=== PATIENT | female | born 1990 | race African-American/Black ===

== ENCOUNTER 2018-10-18 21:00 | Emergency (ER) | payer SELFPAY ==
[~2018-10-18] VITALS: Ht 157.5 cm; Wt 87.5 kg
--- OUTSIDE RECORDS SUMMARY | 2018-10-18 21:02 | XMS REPORT ---
Author [facility] Address Unknown Phone Unavailable Care Team Providers Care Grid Trimmer Name Role Phone Unavailable Unavailable Payers Payer Name Policy Type Policy Number Effective Date Expiration Date Problems This patient has no known problems. Allergies, Adverse Reactions, Alerts Allergy Name Allergy Type Status Severity Reaction(s) Onset Date Inactive Date Treating Clinician Comments No Known Allergies DA Active U 2016-09-16 00:00:00 Medications This patient has no known medications. Results Test Description Test Time Test Comments Text Results Atomic Results Result Comments URINALYSIS COMPLETE 2018-09-01 09:19:00 UA COLOR (test code=COLU) PINKISH YELLOW UA APPEARANCE (test code=APPU) HAZY CLEAR UA GLUCOSE DIPSTICK (test code=DGLUU) norm mg/dL NEGATIVE UA BILIRUBIN DIPSTICK (test code=BILU) NEGATIVE mg/dL NEGATIVE UA KETONE DIPSTICK (test code=KETU) neg mg/dL NEGATIVE UA SPECIFIC GRAVITY (test code=SGU) 1.015 1.001-1.035 UA BLOOD DIPSTICK (test code=BLOSSOM) 250 (4+) Héctor/uL NEGATIVE UA PH DIPSTICK (test code=CHUCKY) 6.5 5.0-8.0 UA PROTEIN DIPSTICK (test code=PROU) 30 (1+) mg/dL Neg-15 UA UROBILINIOGEN DIPSTICK (test code=URO) norm mg/dL 0.0-0.2 UA NITRITE DIPSTICK (test code=KUMAR) NEGATIVE NEGATIVE UA LEUKOCYTE ESTERASE DIPSTICK (test code=LEUU) 500 Laine/uL (3+) uL NEGATIVE UA WBC (test code=WBCU) 5-10 per HPF 0-5 UA RBC (test code=RBCU) 0-3 per HPF 0-5 UA EPITHELIAL CELLS (test code=EPIU) MANY per HPF Few UA BACTERIA (test code=BACU) FEW per HPF NONE Urine Source? Clean CatchUR HCG [id number] 09:19:00* Test Item Value Reference Range Comments UR HCG QUAL (test code=HCGQLU) NEGATIVE This HCGQL test is NOT applicable for MALE patients.Check with nurse about probable order error.If Tumor Marker Test needed, nurse should order test "HCGTU"(Test #550.51331) Urine Source? Clean CatchURINALYSIS [id number] 09:11:00* Test Item Value Reference Range Comments UA COLOR (test code=COLU) PINKISH YELLOW UA APPEARANCE (test code=APPU) HAZY CLEAR UA GLUCOSE DIPSTICK (test code=DGLUU) norm mg/dL NEGATIVE UA BILIRUBIN DIPSTICK (test code=BILU) NEGATIVE mg/dL NEGATIVE UA KETONE DIPSTICK (test code=KETU) neg mg/dL NEGATIVE UA SPECIFIC GRAVITY (test code=SGU) 1.015 1.001-1.035 UA BLOOD DIPSTICK (test code=BLOSSOM) 250 (4+) Héctor/uL NEGATIVE UA PH DIPSTICK (test code=CHUCKY) 6.5 5.0-8.0 UA PROTEIN DIPSTICK (test code=PROU) 30 (1+) mg/dL Neg-15 UA UROBILINIOGEN DIPSTICK (test code=URO) norm mg/dL 0.0-0.2 UA NITRITE DIPSTICK (test code=KUMAR) NEGATIVE NEGATIVE UA LEUKOCYTE ESTERASE DIPSTICK (test code=LEUU) 500 Laine/uL (3+) uL NEGATIVE UA WBC (test code=WBCU) per HPF 0-5 UA RBC (test code=RBCU) per HPF 0-5 UA EPITHELIAL CELLS (test code=EPIU) per HPF Few UA BACTERIA (test code=BACU) per HPF NONE Urine Source? Clean CatchUR HCG [id number] 09:11:00* Test Item Value Reference Range Comments UR HCG QUAL (test code=HCGQLU) Urine Source? Clean CatchCHLAMYDIA GC DNA BY [id number] 15:11:00* Test Item Value Reference Range Comments C. TRACHOMATIS DNA BY PCR (test code=CHLAMTDNA) Negative Negative N. GONORRHOEAE DNA BY PCR (test code=NGONORDNA) Negative Negative [facility], [place] [id number] Vanna VILLARREAL Ph:[phone] performed at: [facility] [address] [place] [address] UR HCG [id number] 01:42:00* Test Item Value Reference Range Comments UR HCG QUAL (test code=HCGQLU) NEGATIVE This HCGQL test is NOT applicable for MALE patients.Check with nurse about probable order error.If Tumor Marker Test needed, nurse should order test "HCGTU"(Test #550.15103) URINALYSIS [id number] 01:41:00* Test Item Value Reference Range Comments UA COLOR (test code=COLU) STRAW YELLOW UA APPEARANCE (test code=APPU) CLOUDY CLEAR UA GLUCOSE DIPSTICK (test code=DGLUU) norm mg/dL NEGATIVE UA BILIRUBIN DIPSTICK (test code=BILU) NEGATIVE mg/dL NEGATIVE UA KETONE DIPSTICK (test code=KETU) neg mg/dL NEGATIVE UA SPECIFIC GRAVITY (test code=SGU) 1.010 1.001-1.035 UA BLOOD DIPSTICK (test code=BLOSSOM) 10 (Trace) Héctor/uL NEGATIVE UA PH DIPSTICK (test code=CHUCKY) 5.0 5.0-8.0 UA PROTEIN DIPSTICK (test code=PROU) 15 (TRACE) mg/dL Neg-15 UA UROBILINIOGEN DIPSTICK (test code=URO) norm mg/dL 0.0-0.2 UA NITRITE DIPSTICK (test code=KUMAR) NEGATIVE NEGATIVE UA LEUKOCYTE ESTERASE DIPSTICK (test code=LEUU) 500 Laine/uL (3+) uL NEGATIVE UA WBC (test code=WBCU) TNTC per HPF 0-5 UA RBC (test code=RBCU) 0-2 per HPF 0-5 UA EPITHELIAL CELLS (test code=EPIU) Few (2-5/hpf) per HPF Few UA BACTERIA (test code=BACU) MANY per HPF NONE Urine Source? Clean CatchURINALYSIS [id number] 01:40:00* Test Item Value Reference Range Comments UA COLOR (test code=COLU) STRAW YELLOW UA APPEARANCE (test code=APPU) CLOUDY CLEAR UA GLUCOSE DIPSTICK (test code=DGLUU) norm mg/dL NEGATIVE UA BILIRUBIN DIPSTICK (test code=BILU) NEGATIVE mg/dL NEGATIVE UA KETONE DIPSTICK (test code=KETU) neg mg/dL NEGATIVE UA SPECIFIC GRAVITY (test code=SGU) 1.010 1.001-1.035 UA BLOOD DIPSTICK (test code=BLOSSOM) 10 (Trace) Héctor/uL NEGATIVE UA PH DIPSTICK (test code=CHUCKY) 5.0 5.0-8.0 UA PROTEIN DIPSTICK (test code=PROU) 15 (TRACE) mg/dL Neg-15 UA UROBILINIOGEN DIPSTICK (test code=URO) norm mg/dL 0.0-0.2 UA NITRITE DIPSTICK (test code=KUMAR) NEGATIVE NEGATIVE UA LEUKOCYTE ESTERASE DIPSTICK (test code=LEUU) 500 Laine/uL (3+) uL NEGATIVE UA WBC (test code=WBCU) per HPF 0-5 UA RBC (test code=RBCU) per HPF 0-5 UA EPITHELIAL CELLS (test code=EPIU) per HPF Few UA BACTERIA (test code=BACU) per HPF NONE Urine Source? 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 No evidence of effusion. The heart size is within normal limits. Pulmonary vasculatures are unremarkable. The osseous structures are grossly intact. IMPRESSION: No active disease. at 2115 Reported and signed by: Lonnie Robbins M.D. CC: Florentino Byrd Technologist: ALPA STUART(R),RDMS,CT Trnscrpt Data: 07/13/2018 (2115) [email or web address].VTL Orig Print D/T: S: 07/13/2018 (2119) PAGE 1 Signed Report - XR HAND 3 + V [id number] 21:23:00 Name: MAYDA JOHN [facility] : 1990 Age/S:28 /F [address] [facility] Unit#:[id number] Loc: [place] [address] Phys: Georgia Coffey MD Dis Date: PHONE #: [phone] Status: REG ER FAX #: [phone] Exam Date: 06/09/2018 Reason: PAIN OF THE 5TH DIGIT EXAMS: CPT CODE: [id number] XR HAND 3 + V RT [id number] REASON FOR EXAM: PAIN OF THE 5TH DIGIT EXAM ORDER DATE: 06/09/2018 8:23 PM Ordering Saba: Georgia Coffey MD PROCEDURE: - XR HAND 3 + V RT FINDINGS: 3 views of the right hand were obtained. The osseous structures are unremarkable in size and shape. The joint spaces are maintained. No evidence of fracture. The phalanges are intact. The carpal and metacarpal bones are unremarkable. There is normal alignment of the radiocarpal joint space IMPRESSION: Unremarkable right hand at 3 Reported and signed by: Lonnie Robbins M.D. CC: Georgia Coffey MD Technologist: NITZA GRACE RT(R),CT Trnscrpt Data: 06/09/2018 (2122) AlexusVTL Orig Print D/T: S: 06/09/2018 (2125) PAGE 1 Signed Report - XR HAND 3 + V [id number] 21:23:00 Name: MAYDA JOHN [facility] : 1990 Age/S:28 /F [address] [facility] Unit#:[id number] Loc: [place] [address] Phys: Georgia Coffey MD Dis Date: PHONE #: [phone] Status: DEP ER FAX #: [phone] Exam Date: 06/09/2018 Reason: PAIN OF THE 5TH DIGIT EXAMS: CPT CODE: [id number] XR HAND 3 + V RT [id number] REASON FOR EXAM: PAIN OF THE 5TH DIGIT EXAM ORDER DATE: 06/09/2018 8:23 PM Ordering Saba: Georgia Coffey MD PROCEDURE: - XR HAND 3 + V RT FINDINGS: 3 views of the right hand were obtained. The osseous structures are unremarkable in size and shape. The joint spaces are maintained. No evidence of fracture. The phalanges are intact. The carpal and metacarpal bones are unremarkable. There is normal alignment of the radiocarpal joint space IMPRESSION: Unremarkable right hand at 2122 Reported and signed by: Lonnie Robbins M.D. CC: Georgia Coffey MD Technologist: NITZA GRACE RT(R),CT Trnscrpt Data: 06/09/2018 (2122) Claire Orig Print D/T: S: 06/09/2018 (2125) PAGE 1 Signed Report - XR HAND 3 + V [id number] 21:23:00 Name: MAYDA JOHN [facility] : 1990 Age/S:28 /F [address] [facility] Unit#:[id number] Loc: [place], [place] [address] Phys: Georgia Coffey MD Dis Date: PHONE #: [phone] Status: DEP ER FAX #: [phone] Exam Date: 06/09/2018 Reason: PAIN OF THE 5TH DIGIT EXAMS: CPT CODE: [id number] XR HAND 3 + V RT [id number] REASON FOR EXAM: PAIN OF THE 5TH DIGIT EXAM ORDER DATE: 06/09/2018 8:23 PM Ordering M.Justine: Georgia Coffey MD PROCEDURE: - XR HAND 3 + V RT FINDINGS: 3 views of the right hand were obtained. The osseous structures are unremarkable in size and shape. The joint spaces are maintained. No evidence of fracture. The phalanges are intact. The carpal and metacarpal bones are unremarkable. There is normal alignment of the radiocarpal joint space IMPRESSION: Unremarkable right hand at 2122 Reported and signed by: Lonnie Robbins M.D. CC: Georgia Coffey MD Technologist: NITZA GRACE RT(R),CT Trnscrpt Data: 06/09/2018 (2122) Jose.VTL Orig Print D/T: S: 06/09/2018 (2125) PAGE 1 Signed Report BASIC METABOLIC [id number] 23:51:00* Test Item Value Reference Range Comments SODIUM (test code=NA) 142 mmol/L 135-148 POTASSIUM (test code=K) 4.2 mmol/L 3.5-5.1 CHLORIDE (test code=CL) 106 mmol/L 101-109 CARBON DIOXIDE (test code=CO2) 30.7 mmol/L 21-32 ANION GAP (test code=GAP) 10 mmol/L 10-20 GLUCOSE (test code=GLU) 99 mg/dL 74-106 BLOOD UREA NITROGEN (test code=BUN) 18 mg/dL 3-21 GLOMERULAR FILTRATION RATE (test code=GFR) > 60 mL/min >=60 Estimated GFR by using Modified MDRD formula.Chronic kidney disease is defined as either kidney damageor GFR <60 mL/min/1.73 m2 for >3 months. CREATININE (test code=CREAT) 0.75 mg/dL 0.55-1.3 BUN/CREATININE RATIO (test code=BUN/CREA) 24.0 10-20 CALCIUM (test code=CA) 8.4 mg/dL 8.4-10.2 HEPATIC FUNCTION [id number] 23:51:00* Test Item Value Reference Range Comments TOTAL PROTEIN (test code=PROT) 6.8 g/dL 6.5-8.4 ALBUMIN (test code=ALB) 3.3 g/dL 3.4-4.8 GLOBULIN (test code=GLOB) 3.5 G/DL 1-10 ALBUMIN/GLOBULIN RATIO (test code=A/G) 0.9 RATIO 0.75-1.50 BILIRUBIN TOTAL (test code=BILT) 0.50 mg/dL 0.0-1.0 BILIRUBIN DIRECT (test code=BILD) 0.10 mg/dL 0.0-0.30 SGOT/AST (test code=AST) 21 U/L 6-32 SGPT/ALT (test code=ALT) 40 U/L 12-78 Note: Change in REFERENCE RANGE due to new reagent method. ALKALINE PHOSPHATASE TOTAL (test code=ALKP) 62 U/L 38-126 [id number] 23:51:00* Test Item Value Reference Range Comments LIPASE (test code=LIP) 131 U/L 128-270 HCG SERUM [id number] 23:51:00* Test Item Value Reference Range Comments HCG SERUM QUAL (test code=HCGQL) NEGATIVE NEGATIVE This HCGQL test is NOT applicable for MALE patients.Check with nurse about probable order error.If Tumor Marker Test needed, nurse should order test "HCGTU"(Test #550.69743) BASIC METABOLIC [id number] 23:50:00* Test Item Value Reference Range Comments SODIUM (test code=NA) 142 mmol/L 135-148 POTASSIUM (test code=K) 4.2 mmol/L 3.5-5.1 CHLORIDE (test code=CL) 106 mmol/L 101-109 CARBON DIOXIDE (test code=CO2) 30.7 mmol/L 21-32 ANION GAP (test code=GAP) 10 mmol/L 10-20 GLUCOSE (test code=GLU) 99 mg/dL 74-106 BLOOD UREA NITROGEN (test code=BUN) 18 mg/dL 3-21 GLOMERULAR FILTRATION RATE (test code=GFR) > 60 mL/min >=60 Estimated GFR by using Modified MDRD formula.Chronic kidney disease is defined as either kidney damageor GFR <60 mL/min/1.73 m2 for >3 months. CREATININE (test code=CREAT) 0.75 mg/dL 0.55-1.3 BUN/CREATININE RATIO (test code=BUN/CREA) 24.0 10-20 CALCIUM (test code=CA) 8.4 mg/dL 8.4-10.2 HEPATIC FUNCTION [id number] 23:50:00* Test Item Value Reference Range Comments TOTAL PROTEIN (test code=PROT) 6.8 g/dL 6.5-8.4 ALBUMIN (test code=ALB) 3.3 g/dL 3.4-4.8 GLOBULIN (test code=GLOB) 3.5 G/DL 1-10 ALBUMIN/GLOBULIN RATIO (test code=A/G) 0.9 RATIO 0.75-1.50 BILIRUBIN TOTAL (test code=BILT) 0.50 mg/dL 0.0-1.0 BILIRUBIN DIRECT (test code=BILD) 0.10 mg/dL 0.0-0.30 SGOT/AST (test code=AST) 21 U/L 6-32 SGPT/ALT (test code=ALT) 40 U/L 12-78 Note: Change in REFERENCE RANGE due to new reagent method. ALKALINE PHOSPHATASE TOTAL (test code=ALKP) 62 U/L 38-126 [id number] 23:50:00* Test Item Value Reference Range Comments LIPASE (test code=LIP) 131 U/L 128-270 HCG SERUM [id number] 23:50:00* Test Item Value Reference Range Comments HCG SERUM QUAL (test code=HCGQL) NEGATIVE CBC W/O [id number] 23:36:00* Test Item Value Reference Range Comments WHITE BLOOD CELL (test code=WBC) 6.9 K/mm3 4.5-12.5 RED BLOOD CELL (test code=RBC) 3.84 mill/mm3 3.7-5.2 HEMOGLOBIN (test code=HGB) 11.7 gram/dL 11.5-15.5 HEMATOCRIT (test code=HCT) 34.7 % 36.0-46.0 MEAN CELL VOLUME (test code=MCV) 90.4 fL 80-98 MEAN CELL HGB (test code=MCH) 30.5 picogram 27.0-33.0 MEAN CELL HGB CONCETRATION (test code=MCHC) 33.7 gram/dL 33.0-36.0 RED CELL DISTRIBUTION WIDTH (test code=RDW) 13.2 % 11.6-16.2 RED CELL DISTRIBUTION WIDTH SD (test code=RDW-SD) 43.0 fL 39.1-52.0 PLATELET COUNT (test code=PLT) 177 K/mm3 150-450 MEAN PLATELET VOLUME (test code=MPV) 9.7 fL 6.7-11.0 URINALYSIS [id number] 23:19:00* Test Item Value Reference Range Comments UA COLOR (test code=COLU) YELLOW YELLOW UA APPEARANCE (test code=APPU) CLEAR CLEAR UA GLUCOSE DIPSTICK (test code=DGLUU) NORMAL mg/dL NEGATIVE UA BILIRUBIN DIPSTICK (test code=BILU) NEGATIVE mg/dL NEGATIVE UA KETONE DIPSTICK (test code=KETU) neg mg/dL NEGATIVE UA SPECIFIC GRAVITY (test code=SGU) 1.020 1.001-1.035 UA BLOOD DIPSTICK (test code=BLOSSOM) neg Héctor/uL NEGATIVE UA PH DIPSTICK (test code=CHUCKY) 6.5 5.0-8.0 UA PROTEIN DIPSTICK (test code=PROU) 15 (TRACE) mg/dL Neg-15 UA UROBILINIOGEN DIPSTICK (test code=URO) 1 mg/dL 0.0-0.2 UA NITRITE DIPSTICK (test code=KUMAR) NEGATIVE NEGATIVE UA LEUKOCYTE ESTERASE DIPSTICK (test code=LEUU) NEGATIVE uL NEGATIVE UA WBC (test code=WBCU) 0-5 per HPF 0-5 IN SOME URINARY TRACT INFECTIONS THERE MAY NOT BE ENOUGHWBCs IN THE URINE TO TRIGGER AN AUTOMATIC (REFLEX) URINECULTURE. A SEPERATE ORDER FOR URINE CULTURE IS RECOMMENDEDIF THERE IS STRONG SUPPORT FOR A URINARY TRACT INFECTIONCLINICALLY. UA RBC (test code=RBCU) 0-2 per HPF 0-5 UA EPITHELIAL CELLS (test code=EPIU) Few (2-5/hpf) per HPF Few UA BACTERIA (test code=BACU) FEW per HPF NONE Urine Source? Clean CatchURINALYSIS [id number] 23:16:00* Test Item Value Reference Range Comments UA COLOR (test code=COLU) YELLOW YELLOW UA APPEARANCE (test code=APPU) CLEAR CLEAR UA GLUCOSE DIPSTICK (test code=DGLUU) NORMAL mg/dL NEGATIVE UA BILIRUBIN DIPSTICK (test code=BILU) NEGATIVE mg/dL NEGATIVE UA KETONE DIPSTICK (test code=KETU) neg mg/dL NEGATIVE UA SPECIFIC GRAVITY (test code=SGU) 1.020 1.001-1.035 UA BLOOD DIPSTICK (test code=BLOSSOM) neg Héctor/uL NEGATIVE UA PH DIPSTICK (test code=CHUCKY) 6.5 5.0-8.0 UA PROTEIN DIPSTICK (test code=PROU) 15 (TRACE) mg/dL Neg-15 UA UROBILINIOGEN DIPSTICK (test code=URO) 1 mg/dL 0.0-0.2 UA NITRITE DIPSTICK (test code=KUMAR) NEGATIVE NEGATIVE UA LEUKOCYTE ESTERASE DIPSTICK (test code=LEUU) NEGATIVE uL NEGATIVE UA WBC (test code=WBCU) per HPF 0-5 Urine Source? Clean Catch
[2018-10-18 22:08] LABS: BILIRUBIN,URINE NEGATIVE (NEGATIVE); CLARITY,URINE SL CLOUDY (CLEAR); COLOR,URINE YELLOW (YELLOW); KETONES,URINE NEGATIVE (NEGATIVE); LEUKOCYTE ESTERASE ,URINE NEGATIVE (NEGATIVE); NITRITE,URINE NEGATIVE (NEGATIVE); PROTEIN,URINE DIPSTICK NEGATIVE (NEGATIVE); URINE UROBILINOGEN 0.2 mg/dL (0.2 - 1)
[2018-10-18 22:09] LABS: PREGNANCY TEST, URINE NEGATIVE (NEGATIVE)
[2018-10-18 22:20] LABS: BACTERIA,URINE MODERATE /HPF; EPITHELIAL CELLS,URINE MODERATE /LPF; TRANSITIONAL EPI CELLS,URINE FEW
[2018-10-19] MEDS ORDERED: DOXYCYCLINE HY100 M3 PO (01:43)
[2018-10-19] MEDS ORDERED: FLUCONAZOLE100 MG PO (01:52)
== END 2018-10-19 02:01 | disposition home or self-care (01) ==
LOC: ER 21:00
DX: A56.02 Chlamydial vulvovaginitis (principal); A54.02 Gonococcal vulvovaginitis, unspecified; B37.3 Candidiasis of vulva and vagina
CPT/HCPCS: 81001; 81025; 99283

== ENCOUNTER 2020-05-04 14:21 | Emergency (ER) | payer SELFPAY ==
[~2020-05-04] VITALS: Ht 157.5 cm; Wt 87.5 kg
[~2020-05-04 14:21] MED LIST: DOXYCYCLINE HY100 M3 PO; FLUCONAZOLE100 MG PO
[2020-05-04] MEDS ORDERED: KETOROLAC TROMETHAMINE 30 MG/ML VIAL IV STA (14:48)
[2020-05-04 14:56] LABS: CLARITY,URINE SL CLOUDY (CLEAR); COLOR,URINE YELLOW (YELLOW); KETONES,URINE NEGATIVE (NEGATIVE); LEUKOCYTE ESTERASE ,URINE NEGATIVE (NEGATIVE); NITRITE,URINE NEGATIVE (NEGATIVE); PREGNANCY TEST, URINE NEGATIVE (NEGATIVE); PROTEIN,URINE DIPSTICK NEGATIVE (NEGATIVE); URINE UROBILINOGEN 0.2 mg/dL (0.2 - 1)
[2020-05-04 15:05] LABS: BACTERIA,URINE MODERATE /HPF; EPITHELIAL CELLS,URINE MANY /LPF; TRANSITIONAL EPI CELLS,URINE FEW
[2020-05-04] MEDS ORDERED: IOPAMIDOL 370 MG/ML 200 ML INFUS..BTL INJ ONE (15:44)
[2020-05-04] MEDS ORDERED: SODIUM CHLORIDE 0.9% 50ML 50 ML ONE (15:44)
[2020-05-04 17:17] LABS: BASOPHILS % 0.4 % (0.0-1.0); EOSINOPHILS # (AUTO) 0.1 (0.0-0.4); EOSINOPHILS % 1.9 % (0.0-6.0); HEMATOCRIT 34.9 % (34.2-44.1); HEMOGLOBIN 11.5 g/dL (12.0-16.0); LYMPHOCYTES # (AUTO) 2.3 (1.0-3.2); LYMPHOCYTES % 42.7 % (18.0-39.1); MEAN CORPUSCULAR HEMOGLOBIN 29.3 pg (28-32); MONOCYTES # (AUTO) 0.5 (0.2-0.8); MONOCYTES % 8.7 % (4.4-11.3); NEUTROPHILS # (AUTO) 2.5 (2.1-6.9); NEUTROPHILS % 46.1 % (38.7-80.0); PLATELET COUNT 179 x10e3/uL (140-360); RED BLOOD COUNT 3.92 x10e6/uL (3.6-5.1); RED CELL DISTRIBUTION WIDTH 12.6 % (11.7-14.4)
[2020-05-04 17:37] LABS: ALANINE AMINOTRANSFERASE 21 IU/L (0-55); ALBUMIN 3.5 g/dL (3.5-5.0); ALKALINE PHOSPHATASE 54 IU/L (40-150); ANION GAP 11.2 mmol/L (8-16); BLOOD UREA NITROGEN 9 mg/dL (7-26); BUN/CREATININE RATIO 12 (6-25); CARBON DIOXIDE 24 mmol/L (22-29); CHLORIDE 108 mmol/L (98-107); CREATININE, SERUM 0.74 mg/dL (0.57-1.11); EST GLOMERULAR FILTRATION RATE > 60 ML/MIN (60-); GLUCOSE 94 mg/dL (74-118); POTASSIUM 4.2 mmol/L (3.5-5.1); SODIUM 139 mmol/L (136-145)
== END 2020-05-04 19:37 | disposition left against medical advice (07) ==
LOC: ER 14:25
DX: R10.30 Lower abdominal pain, unspecified (principal); R11.2 Nausea with vomiting, unspecified; M54.5 Low back pain
CPT/HCPCS: 36415; 74177; 80053; 81001; 81025; 83690; 85025; 99283; J1885; Q9967